=== PATIENT | female | born 1995 | race Caucasian/White ===

== ENCOUNTER 2016-10-14 09:57 | Outpatient (CLI) | payer OTHER ==
[~2016-10-14] VITALS: Ht 162.6 cm; Wt 167.7 kg
[2016-10-14 10:04] VITALS: BP 148/83; PULSE 118; RESP 18; Ht 162.6 cm; Wt 167.7 kg
--- NOTE | 2016-10-14 11:51 | CONS ---
[facility] initial outpatient consultation note. PLACE OF SERVICE: [facility] DATE OF CONSULTATION: 10/14/2016 ASSESSMENT AND PLAN: A very pleasant 21-year-old young lady with comorbid issue of BMI of 63.5, presenting with left upper thigh posterior skin lesion that appears to be a benign skin tag versus a lipoma. Certainly there is no indication for surgical intervention for this area. I explained all of this to the patient and I reassured her, and I believe that she understands and agrees with the plans. Of much more urgent and important concern is her BMI of 63.5. We spent an additional 15 minutes of counseling time regarding possible approaches that she could take in order to change her lifestyle. I explained to her the ramifications of having such a BMI for a lifetime including the increased risk of malignancy as well as cirrhosis. We also discussed the ways to achieve that kind of a change. I explained to her the importance of consistent exercise as well as smarter choices in terms of her caloric intake. I also recommended that she adopt this approach as a change in lifestyle and after she has proven that she can manage her life better that then this would open possible additional assistance with surgical intervention with a referral to a bariatric center. I do believe that this could be the most value based care for this very nice young lady and it may in fact impact not only her life, but also her future family's life and perhaps her siblings life as well. I believe that the patient appeared to understand and was receptive to the discussion. With the above assessment I have recommended the followin. Symptomatic followup of the left upper thigh with regular doctor. 2. Follow up with regular physician regarding lifestyle changes and assistance with healthier living under medical guidance. 3. Consideration for referral for bariatric center. 4. Psychosocial assistance with reinforcement of the above discussed ideas. Thank you again for allowing us to participate in the care of this very pleasant lady and I am certain her wonderful family. If there are any questions , please feel free to call me at [phone]. TOTAL VISIT TIME: 45 minutes of which more than half was spent in [id number] discussion with the patient as well as coordination of care between multiple physicians and providers. HISTORY OF PRESENT ILLNESS: The patient is a very pleasant 21-year-old young lady with comorbid issue of a BMI of 63.5, presenting with concern for left upper thigh posterior skin lesion, which on ultrasound that was done 08/12/2016 demonstrated no detectable mass or cyst. She reports having noted this area all her life and there is no pain associated with it. The reason for her visit was that she decided at this time she wanted to get an opinion about whether this should come out or not. No other left lower extremity complaints. She has otherwise had no other major medical issues. No other complaints. PAST MEDICAL HISTORY: BMI 63.5. PAST SURGICAL HISTORY: None. ALLERGIES: NO KNOWN DRUG ALLERGIES. MEDICATIONS: None. SOCIAL HISTORY: The patient currently works and does not report any smoking, drinking, or intravenous drug use. FAMILY HISTORY: History of obesity in the family. Otherwise, no history of cancer, diabetes, heart disease, stroke problems or high blood pressure. REVIEW OF SYSTEMS: Other than the above-mentioned, there are no other pertinent positives or pertinent negatives in a complete 14-point review of systems. PHYSICAL EXAMINATION: GENERAL: The patient appears to be a very pleasant young lady of descent, appearing stated age with a BMI of 63.5. VITAL SIGNS: Her pulse is 118, her blood pressure is 148/83. Otherwise, vital signs are normal. EXTREMITIES: Focused exam of the left lower extremity showed a 1 cm area of raised skin that is soft to touch and nontender. There is no erythema of the skin around it. There are no palpable masses associated with this area. The rest of the exam was normal. SKIN: Appears to be pink and feels warm to touch. NEUROLOGIC: She is awake, alert, and follows commands appropriately. LABORATORY DATA: Dated 07/16/2015 showed normal CBC, with a platelet count of 268. Electrolytes were normal. Albumin 4.1. Liver function and injury parameters were normal. IMAGING: Ultrasound was reviewed above. Dictated By: UZIEL TURCIOS/NTS Conf#: [id number] DID#: [id number] CC: Erica Altamirano MD;*EndCC* MTDD
== END 2016-10-14 17:00 | disposition home or self-care (01) ==
LOC: HPC 09:57
PROVIDERS: ATTEND Transplant Surgery
DX: L98.9 Disorder of the skin and subcutaneous tissue, unspecified (principal); Z68.44 Body mass index [BMI] 60.0-69.9, adult
CPT/HCPCS: G0463